=== PATIENT | male | born 1985 | race Hispanic/Latino ===

== ENCOUNTER 2022-04-27 18:02 | Emergency (ER) | payer OTHER ==
[~2022-04-27] VITALS: Ht 170.2 cm; Wt 93.2 kg
[2022-04-27] MEDS ORDERED: IBUPROFEN 600 MG TAB PO STA (18:18)
[2022-04-27] MEDS ORDERED: IBUPROFEN 600 MG TAB ONE (18:55)
== END 2022-04-27 20:00 | disposition home or self-care (01) ==
LOC: FSED 18:50
DX: M25.531 Pain in right wrist (principal); M25.431 Effusion, right wrist; Y93.67 Activity, basketball
CPT/HCPCS: 99283